=== PATIENT | male | born 1955 | race Caucasian/White ===

== ENCOUNTER 2017-06-18 09:56 | Day surgery (SDC) | payer BC ==
[~2017-06-18 09:56] MED LIST: RINGER'S SOLUTION,LACTATED 1,000 ML IV PRN
[2017-06-18] MEDS ORDERED: BUPIVACAINE HCL/EPINEPHRINE 50 ML VIAL IJ ONE ×2 (10:40)
[2017-06-18] MEDS ORDERED: RINGER'S SOLUTION,LACTATED 1,000 ML IV PRN (12:06)
[2017-06-18 12:54] VITALS: BP 131/79
--- NOTE | 2017-06-18 17:31 | OR ---
Operative Report - Dictated Report Narrative: OPERATIVE REPORT DATE OF OPERATION: 06/18/2017 PREOPERATIVE DIAGNOSIS: History of colon polyps. Family history of colon cancer. Pilar cyst of the scalp POSTOPERATIVE DIAGNOSIS: Severe sigmoid diverticulosis, redundant colon. 2 cm pilar cyst of the scalp (pathology pending) OPERATION: Colonoscopy to the proximal ascending colon. Excision pilar cyst of the scalp SURGEON: John Tobias MD ANESTHESIA: SELENA [place] CRNA INDICATIONS FOR PROCEDURE: The patient is a 61-year-old male referred by Dr. Jerry Steen. The patient's previous colonoscopy in 2006 was remarkable for a tubular adenoma and a hyperplastic polyp. The patient's grandmother had colon cancer at age 80. The patient moves his bowels once or twice a day FINDINGS: 2 cm pilar cyst of the scalp (pathology pending). Very capacious redundant colon with exam accomplished to the proximal ascending colon. Severe sigmoid diverticulosis. NARRATIVE OF PROCEDURE: The patient was identified in the holding area, the cyst cyst on the scalp was confidently identified, and prior to the administration of anesthetic, a multidisciplinary timeout was observed. The patient was initially placed supine and intravenous sedation administered. The scalp cyst was prepped with Betadine solution and isolated with sterile drapes. The area was infiltrated with 0.5% Marcaine with epinephrine. An incision was made over the cyst which was then bluntly dissected free from the surrounding tissues and delivered intact and submitted to pathology. Bleeding was controlled with electrocautery. All counts were correct. The wound was closed with jason and left open. The patient was then placed in the left lateral position and the perineum was inspected. There was no evidence of pilonidal disease or skin breakdown. The external appearance of the anus was normal. Sphincter tone was good. The flexible fiberoptic colonoscope was inserted into the rectum which was insufflated with air. The rectal mucosa and submucosal vascular pattern appeared normal, the prep was seen to be complete. The scope was advanced through the sigmoid colon, which contained numerous large noninflamed diverticular opening some of which were impacted with stool. The scope was advanced up the descending colon, and around the splenic flexure where the triangular haustral architecture of the transverse colon was seen. The scope was advanced across the transverse colon, around the hepatic flexure into the ascending colon. At this juncture the entire length of colonoscope had been inserted. Despite the use of standard reduction maneuvers the scope could not be advanced further proximally. The patient evidenced abdominal breathing which made assistance by manual compression impossible. The scope was withdrawn and readvanced on at least 4 occasions with similar result, in that the proximal several inches of true cecum was not visualized. The mucosa at this level appeared normal. The scope was accordingly then slowly withdrawn in a circular fashion so that all aspects of colonic mucosa were inspected. The colon was extremely redundant in course and capacious in nature. The haustral architecture however appeared well preserved throughout with no evidence of external compression. The mucosa and submucosal vascular pattern appeared normal, specifically there was no gross evidence to suggest colitis or inflammatory bowel disease and no AV malformations were seen. The diverticulosis was severe in degree and confined primarily to the sigmoid colon. No polyps were encountered. The scope was gradually withdrawn to the level of the rectum. As much insufflated air as possible was removed. The scope was withdrawn from the patient and the procedure terminated. The patient tolerated the anesthetic and procedure well without complication and was transferred back to the ambulatory surgery area awake and in stable condition. The patient remained stable throughout a period of postoperative observation. He denied abdominal discomfort, was able to tolerate by mouth intake, and was up without assistance. I shared the operative findings with the patient and he was given copies of the photographs which appear in the medical record. He was discharged home with instructions not to engage in hazardous activity today, but may resume normal activity tomorrow, and advance diet as tolerated. He is to continue those medications as listed in the history and physical exam. A pamphlet on diverticular disease was reviewed with him and his , and a trial of Benefiber or equivalent suggested. He is to keep his scalp wound dry, and return to the clinic in 7 days for staple removal. It was explained that because the true cecum was not visualized, he should undergo an elective double contrast barium enema as an outpatient. This will be scheduled when he returns for staple removal. Reviewed and electronically signed
== END 2017-06-18 09:57 | disposition home or self-care (01) ==
LOC: AMB 09:56
PROVIDERS: ATTEND Surgery
PROC: 0DJD8ZZ Inspection of Lower Intestinal Tract, Via Natural or Artificial Opening Endoscopic (ICD-10-PCS; principal; 2017-06-18 11:00)
PROC: 0HB0XZZ Excision of Scalp Skin, External Approach (ICD-10-PCS; 2017-06-18 11:00)
DX: Z12.11 Encounter for screening for malignant neoplasm of colon (principal); K57.30 Diverticulosis of large intestine without perforation or abscess without bleeding; L72.11 Pilar cyst; I10 Essential (primary) hypertension; E78.5 Hyperlipidemia, unspecified; I25.10 Atherosclerotic heart disease of native coronary artery without angina pectoris; M17.0 Bilateral primary osteoarthritis of knee; Z87.891 Personal history of nicotine dependence; Z68.39 Body mass index [BMI] 39.0-39.9, adult; Z86.010 Personal history of colon polyps; Z80.0 Family history of malignant neoplasm of digestive organs
CPT/HCPCS: 11422; G0105

== ENCOUNTER 2018-09-08 06:24 | Inpatient (IN) ==
--- NOTE | 2018-08-12 07:38 | ANES ---
Anesthesia Pre Procedure Eval HOME MEDICATIONS Aspirin [Aspirin Enteric Coated] 325 mg PO DAILY 06/05/17 [Last Taken Unknown] Calcium Carbonate/Vitamin D3 [Calcium 600 + Vit D 200 Tablet] 1 ea PO DAILY 06/05/17 [Last Taken Unknown] Colchicine [Colcrys] 0.6 mg PO BID PRN 06/05/17 [Last Taken Unknown] Lisinopril [Prinivil] 10 mg PO DAILY 06/05/17 [Last Taken Unknown] Magnesium 250 mg PO DAILY 06/05/17 [Last Taken Unknown] Polyethylene Glycol 3350 [Miralax] 17 gm PO DAILY 06/05/17 [Last Taken Unknown] Psyllium Husk (with Sugar) [Metamucil Powder] 2 tbs PO DAILY 06/05/17 [Last Taken Unknown] metoprolol succinate ER 25 mg tablet,extended release 24 hr 25 mg PO DAILY #30 tab 03/17/18 [Last Taken Unknown] rosuvastatin 40 mg tablet 40 mg PO DAILY #30 tab 04/10/18 [Last Taken Unknown] allopurinol 300 mg tablet 300 mg PO DAILY #90 tab 04/13/18 [Last Taken Unknown] naproxen sodium 220 mg tablet 440 mg PO DAILY PRN 05/15/18 [Last Taken Unknown] tadalafil 20 mg tablet 20 mg PO DAILY PRN #30 tab 05/19/18 [Last Taken Unknown] furosemide 20 mg tablet 20 mg PO DAILY #90 tab 07/16/18 [Last Taken Unknown] Allergies/Adverse Reactions: Allergies Allergy/AdvReac Type Severity Reaction Status Date / Time No Known Allergies Allergy Verified 06/29/18 08:39 - Planned Procedure Planned Procedure: Left Total Knee Arthroplasty Medication List Reviewed:: Yes Allergies Verified: Yes Medical History (Last Reviewed 08/12/18 @ 07:35 by Paul Michael CRNA) Allergic rhinitis Onset Date: ~11/07/11 CAD (coronary artery disease) Onset Date: ~11/07/11 Caries Onset Date: ~11/27/15 Cerumen debris on tympanic membrane of right ear Onset Date: ~10/24/15 Chest pain Onset Date: Unknown Constipation Onset Date: ~06/22/15 Diverticulosis of colon Onset Date: Unknown Epidermoid cyst Onset Date: ~05/13/17 on scalp Gout Onset Date: ~10/30/16 Hyperlipidemia Onset Date: ~06/22/15 Hypertension Onset Date: ~11/07/11 Hypogonadism Onset Date: ~11/07/11 Knee pain Onset Date: ~2005 left Leg cramp Onset Date: ~06/22/15 Osteoarthrosis of knee Onset Date: ~05/13/17 Shoulder pain, right Onset Date: ~04/2018 UTI (urinary tract infection) Onset Date: ~11/27/15 Chana Onset Date: ~06/22/15 Surgical History (Last Reviewed 08/12/18 @ 07:35 by Paul Michael CRNA) Colonoscopy planned Onset Date: ~201603/17/2007 Tinguely- tubular adenoma, hyperplastic polyp. 06/18/2017 Bagan- incomplete to proximal ascending colon. Redundant colon, severe sigmoid diverticulosis. f/u w/ barium enema. H/O coronary angiogram Onset Date: ~2013 2009, 06/2014 [place] H/O excision of epidermal inclusion cyst Onset Date: ~06/18/17 Bagan- scalp H/O nasal septoplasty Onset Date: ~01/17/11 [place] Tonsillectomy planned Onset Date: ~1963 age 10 or 11 Family History (Last Reviewed 08/12/18 @ 07:35 by Paul Michael CRNA) Brother Alive and well Grandfather Cancer Hypertension Hypothyroidism Grandmother Cancer Hypertension Hypothyroidism Grandmother Cancer Colon Heart disease Hypertension Grandfather Heart disease Hypertension Father , age 79 Heart disease Hypertension Myocardial infarction IBS (irritable bowel syndrome) Mother , age 78-sepsis Hypertension Hypothyroidism Cancer Breast Dementia Sister Alive and well - Family Anesthesia History Family History:: no untoward family reactions to anesthesia, no familial bleeding tendencies, no family history of clotting disorders, no family history of premature - Airway/Neck/Teeth Within Normal Limits:: Yes Teeth Condition: Intact Neck Exam: non-tender, full range of motion Mallampatti Score: 3 Thyromental (T-M) distance: > 6 cm Mandibulo Hyoid distance: > 3 cm - Respiratory Respiratory: chest non-tender, lungs clear Smoking Status: Never smoker Sleep Apnea currently treated: No Sleep Apnea by current assessment: Yes - some symptoms Discussed Risks/Treatment of EMILE: Yes - Cardiovascular Patient History - Cardiac/Respiratory: Coronary Heart Disease, Myocardial Infarction - by patient history, no documetation seen, await EKG and H&P. History highly suggestive. Tolerates Activity: Fair Heart Sounds: S1 & S2, Regular - Anesthesia Assessment and Plan ASA Class: PS, III Anesthesia Type Plan: Block - Adductor canal for post op pain relief, Spinal Planned difficult intubation/equipment available: No - standby
[~2018-09-08 06:24] MED LIST changes: -RINGER'S SOLUTION,LACTATED 1,000 ML IV PRN; +ROPIVACAINE HCL/PF 100 MG, EPINEPHrine 0.2 MG in NORMAL SALINE 100 ML IJ PRN; +TRANEXAMIC ACID 1,000 MG in NORMAL SALINE 100 ML IV PRN; +ceFAZolin SODIUM 1 GM VIAL IV PRN
[2018-09-08] MEDS: RINGER'S SOLUTION,LACTATED 1,000 ML IV PRN ×2 (07:25→09:25)
[2018-09-08] MEDS ORDERED: MAGNESIUM HYDROXIDE 30 ML UDC PO PRN (10:23)
[2018-09-08] MEDS ORDERED: ONDANSETRON HCL/PF 2 MG/ML VIAL IV PRN (10:23)
[2018-09-08] MEDS ORDERED: diphenhydrAMINE HCL 50 MG/ML VIAL IV PRN (10:23)
[2018-09-08] MEDS ORDERED: MAG HYDROX/ALUMINUM HYD/SIMETH 30 ML UDC PO PRN (10:23)
[2018-09-08] MEDS ORDERED: ACETAMINOPHEN 500 MG TABLET PO PRN (10:23)
--- NOTE | 2018-09-08 10:38 | OR ---
Operative Report - Dictated Report Narrative: Date: 09/08/2018 Preoperative diagnosis: Left knee degenerative joint disease. Postoperative diagnosis: Left knee degenerative joint disease. Procedure: Left total knee arthroplasty. Surgeon: Norbert Diamond M.D. Senior Contract Specialist: Darius Guerra PA-C Anesthesia: Spinal with regional block and local periarticular joint injection. Complications: None Specimens: Bone for disposal. Estimated blood loss: Minimal. Tourniquet time: 68 Minutes at 300 millimeters of mercury. Retained implants: Depuy Attune size 8 standard lugged cemented posterior stabilized femoral component. Size 8 fixed-bearing cemented tibial platform. 8 by 6 millimeter posterior stabilized cross-linked tibial insert. 41 millimeter medialized patella button. Indications: Jl is a 62-year-old male active community ambulator. This patient was followed in my clinic for period of time with significant complaints of left knee pain consistent with arthritic changes. They had failed conservative measures including but not limited to activity modification, passage of time, medications, and other conservative measures. Patient wished to proceed with surgical treatment. The risks, benefits, and alternatives were discussed in clinic. The risks of , blood clots, bleeding, infection, nerve/tendon blood vessel/ injury, malposition of components, intraoperative fracture, postoperative limited range of motion, persistent pain, failure of components, and need for additional procedures. Patient wished to proceed consent was obtained after answering all questions. Procedure: After marking the correct extremity on the floor, the patient was taken to the operating room. A timeout was performed. IV antibiotics consisting of 2 g of Ancef were administered prior to the procedure. A regional followed by spinal anesthetic was induced by anesthesia. on the operative table with all bony prominences well-padded. Muñoz catheter was placed and a bump was placed under the operative side buttock. SCDs and MONTSERRAT hose were utilized on the nonoperative leg. A well-padded tourniquet was applied to the operative thigh. The operative leg was then pre-scrubbed with alcohol prepped and draped in a standard sterile fashion. After exsanguinating the extremity with an Esmarch bandage, the tourniquet was inflated. After marking out the anterior knee for standard incision centered over the patella, the skin was incised and dissected down to the joint retinaculum. The joint retinaculum was marked out as well as the horizontal axis of the patella, and a standard medial parapatellar arthrotomy was then made. The most proximal aspect of the quadriceps tendon and the patella tendon insertion were protected from release. A partial synovectomy was performed as well as a resection of the infrapatellar fat pad. The distal femoral fat pad proximal to the trochlea was also resected using cautery. The soft tissues were elevated off the medial aspect of the proximal tibia using a Benites elevator ensuring that we did not transect the medial collateral ligament. Upon initial evaluation range of motion was approximately 0 degrees to 125 degrees of flexion. There were signs of advanced arthrosis in the medial and patellofemoral joint spaces. There were large marginal osteophytes which were removed with a rongeur. The knee was hyperflexed and the patella was tucked laterally. Protecting the surrounding soft tissues with Homans, an entry drill was placed down the femoral canal using Whitesides line for guidance into the entry point. The intramedullary femoral alignment anais was utilized in order to cut the distal femur in 5 of valgus resecting 10 millimeters of bone. Next the distal femur was sized to a size 8 standard. An anterior referencing guide was utilized to place the distal femoral cutting block in 3 of external rotation. This was pinned into place. The rotation was confirmed both visually and based on anatomic landmarks. The 4 in 1 cutting jig of the appropriate size was utilized in order to make all bony cuts. Retractors were utilized in order to protect surrounding soft tissues. This cut did not result in any excessive notching. We then cut the box centered over the distal femur. This allowed for resection of the anterior and posterior cruciate ligaments. I then turned my attention to the preparation of the tibia. Using an extra medullary tibial alignment anais, 3 millimeters of bone was resected off the medial articular surface. This was made perpendicular to the mechanical axis of the joint with the alignment anais centered over the ankle mortise. The alignment anais was parallel to the mechanical axis, centered over the medial one third of the tibial tubercle, paralleling the anterior surface of the tibia. We then turned our attention to the remaining meniscus and soft tissues. These were removed while protecting the surrounding ligaments and soft tissues. The marginal osteophytes off the anterior, posterior, medial, lateral aspects of the femur and tibia were removed. The tibia was sized out to a size 8. Next the tibia was drilled and punched in an externally rotated position as confirmed with a drop anais. Next the trial femur and a series of tibial inserts were utilized in order to allow for full extension and maximal flexion. It was found that a 6 millimeter insert gave the best range of motion and stability at multiple flexion points as well as at full extension there was less than 2 mm of gapping both medially and laterally. There is minimal anterior translation with the knee at 90 of flexion and no signs of being able to dislocate the knee. The patella was then prepared. The initial thickness was 26 millimeters. This was reamed down to 16 millimeters parallel to the anterior surface of the patella. It was sized out to a size 41 mm medialized patella button. This was then drilled and trialed. Without any medial restraint the patella tracked appropriately and did not sublux or dislocate. At this point, it was felt these were the appropriate sized implants and all trials were removed. The standard periarticular joint injection consisting of ropivacaine, Toradol, and epinephrine were injected into the periarticular joint tissues. The bony surfaces were thoroughly irrigated with a pulsatile-suction saline irrigation device. A bone plug from the prior resected anterior chamfer cut was placed into the drill hole at the distal femur. The bony surfaces were then dried in preparation for placement of the implants. The cement was vacuum mixed per the power ballast machine operator's instructions. The cement was placed on the dry bony surfaces and posterior aspect of the implants. The implants were impacted into place, removing all extruded cement. At this point anesthesia administered tranexamic acid per protocol intravenously. The knee was placed in extension with axial loading with the trial insert while the cement cured. A dilute 0.35% betadyne-saline solution was used to irrigate the knee and allowed to sit in the knee while the cement cured. Once the cement cured, all remaining extruded cement was removed. The knee was placed through a range of motion with the trial insert to ensure appropriate range of motion and stability. Final range of motion was approximately 0 to 125 degrees. The knee was again thoroughly irrigated with pulsatile saline lavage. The final polyethylene insert was then impacted into place ensuring no retained soft tissues. The remaining pe riarticular joint injection was injected. The knee was then packed with lap sponges which were soaked with dilute betadyne solution and the tourniquet was let down. Pressure was held for approximately 2 minutes and then hemostasis was obtained using electrocautery to coagulate any bleeding vessels. The knee was then placed over a triangle and the arthrotomy was closed with interrupted #1 Vicryl after thoroughly irrigating the joint. The deep and subcutaneous tissues were closed with interrupted oh and 3-0 Vicryl respectively. Skin was closed with a running subcutaneous 3-0 Monocryl and jason. Xeroform, 4 x 4's, ABD, Sof-Rol, and a full leg Ke wrap were applied. All sponge, needle, blade, and instrument counts were correct prior to closing the wounds. Postoperative condition: The patient was awoken and transferred to the postanesthesia care unit in stable condition. Plan is to be admitted to the inpatient medical/surgical floor postoperatively for 24 hours of IV antibiotics, physical therapy, occupational therapy, and medical co-management. Patient will be weightbearing as tolerated with range of motion as tolerated. DVT prophylaxis will be with SCDs, MONTSERRAT hose, and pharmacological anticoagulation. Anticipated hospital stay is approximately 2-4 days.
--- NOTE | 2018-09-08 11:00 | ANES ---
Anesthesia Procedure Note Procedure Note: ANESTHESIA PROCEDURE NOTE Date of Procedure: 09/08/2018 Time of procedure: 8:05 AM. Performed by: Paul Michael CRNA, MSN [employer] Dipper: Katty Rai RN. Preprocedure diagnosis: Post left total knee arthroplasty pain relief. Post procedure diagnosis: Same. Procedure: Left Adductor Canal Block. Indications: Post left total knee arthroplasty pain relief. Findings: See below. Details of the procedure: The patient was brought to OR for and placed in supine position. The patient's left femoral area to the knee was prepped with chlorhexidine and using ultrasound guidance the last femoral artery wasidentified at approximately the proximal one third femur. Under ultrasound guidance the saphenous nerve was approached with visualization of a 4 inch shielded block needle approaching the adductor canal just under the sartorius muscle. Once saphenous nerve was identified with proximity to the needle tip, the saphenous nerve was surrounded with 25 mL bupivacaine 0.25% with 1-200,000 epinephrine. Please see radiology/ultrasound report for details and retained images of the procedure. EBL: 0 Fluids: N/A. Specimen: N/A. Post procedure condition: The patient tolerated the procedure well. No complications were noted. Thank you for this consultation. Paul Michael CRNA, MSN
--- NOTE | 2018-09-08 11:00 | ANES ---
Post Anesthesia Discharge - Transfer of Care Transfer of Care handoff given to nurse: Yes - Discharge from PACU Discharge from PACU when meets criteria: Yes - Comfortable in PACU.
--- NOTE | 2018-09-08 12:16 | ANES ---
Post Anesthesia Assessment - Vital Signs Vitals: Last Vital Signs Temp 36.8 C 09/08/18 11:15 Pulse 78 09/08/18 11:15 Resp 18 09/08/18 11:15 BP 105/68 09/08/18 11:15 Pulse Ox 96 09/08/18 11:15 Airway Patency: Normal - Mental Status Level Of Consciousness: Awake, Alert - Pain Level Pain Score: 0 - N/V Assessment Nausea/Vomiting Presence: None Dehydration:: No
[2018-09-08] MEDS: NORMAL SALINE 1,000 ML IV PRN ×2 (14:02→21:48)
[2018-09-08] MEDS: ceFAZolin SODIUM 2 GM in DEXTROSE 5 % IN WATER 50 ML IV SCH ×4 (14:04→22:27)
[2018-09-08] MEDS: oxyCODONE HCL/ACETAMINOPHEN 1 TAB TABLET PO PRN ×2 (14:34→21:12)
[2018-09-08] MEDS: MORPHINE SULFATE 2 MG/ML DISP.SYRIN IV PRN ×4 (18:48→22:55)
[2018-09-08] MEDS: SENNOSIDES/DOCUSATE SODIUM 1 TAB TABLET PO SCH (22:26)
[2018-09-09] MEDS: MORPHINE SULFATE 2 MG/ML DISP.SYRIN IV PRN (00:02)
[2018-09-09] MEDS: oxyCODONE HCL/ACETAMINOPHEN 1 TAB TABLET PO PRN ×7 (01:18→22:03)
[2018-09-09 05:25] LABS: Hematocrit 41.2 % (42.0-52.0); Hemoglobin 13.8 gm/dL (13.5-18.0); Mean Cell Volume 87.3 fl (78-100); Mean Corpuscular Hemoglobin 29.2 pg (27-31); Mean Corpuscular Hgb Conc 33.5 g/dl (32-36); Mean Platelet Volume 9.3 fl (8-11.3); Platelet Count 169 K/mm3 (150-450); Red Blood Count 4.72 M/mm3 (4.7-6.0); Red Cell Distribution Width 13.4 % (11.5-14.0); White Blood Count 8.3 K/mm3 (4.0-10.5)
[2018-09-09] MEDS: ceFAZolin SODIUM 2 GM in DEXTROSE 5 % IN WATER 50 ML IV SCH ×2 (05:25)
[2018-09-09 05:35] LABS: Anion Gap 11.8 mmol/L (6.8-13.8); BUN/Creatinine Ratio 11.5 (9.0-21.6); Calcium * 8.5 mg/dL (7.9-10.9); Carbon Dioxide 24.5 mmol/L (24-32.6); Estimated Creat Clear 90.9; Potassium 4.3 mmol/L (3.4-4.6)
[2018-09-09] MEDS ORDERED: TRANEXAMIC ACID 1,000 MG in NORMAL SALINE 100 ML IV PRN (06:00)
[2018-09-09] MEDS ORDERED: RINGER'S SOLUTION,LACTATED 1,000 ML IV PRN (06:00)
[2018-09-09] MEDS: ENOXAPARIN SODIUM 40 MG/0.4 ML SYRG SC SCH (09:40)
[2018-09-09] MEDS: POLYETHYLENE GLYCOL 3350 119 GM BTL PO SCH (12:10)
[2018-09-09] MEDS: PSYLLIUM SEED 1 PACKET PACKET PO SCH (12:13)
--- NOTE | 2018-09-09 13:08 | PN ---
Subjective - Date and Time Seen Date: 09/09/18 Time: 08:15 Subjective Narrative: Patient reports no acute events, he does note significant pain, was given IV pain medication throughout the night intermittently. He notes his pain is currently a 7/10. He has been up and bear weight without complication. Objective - Vitals Vitals: Last Vital Signs Temp 36.6 C 09/09/18 11:00 Pulse 92 09/09/18 11:00 Resp 12 09/09/18 11:00 BP 127/91 H 09/09/18 11:00 Pulse Ox 93 09/09/18 11:00 - Abnormal Lab Findings Abnormal Lab Findings: Abnormal Lab Results 09/09/18 09/09/18 Range/Units 05:25 05:25 Hct 41.2 L (42.0-52.0) % Random Glucose 135 H (70-110) mg/dL - Exam Constitutional: Present: Alert, Cooperative, No distress Respiratory: Present: no respiratory distress Extremity: Present: other - LLE--> sensation intact light touch, distal capillary refill brisk, 5/5 plantar flexion/dorsiflexion, postoperative bandages remain in place clean, dry, intact Eye contact: Present: cooperative Thoughts: Present: normal thought pattern Cauti Physician Documentation - Urinary Catheter Management 2-way Urethral Date of Insertion: 09/08/18 Time of Insertion: 08:35 Date of Removal: 09/09/18 Time of Removal: 06:48 Assessment/Plan Plan Narrative: - 62 y/o male postop day 1 status post a left total knee arthroplasty -Weightbearing as tolerated, assistance as needed -PT/OT progress as tolerated -P.o. diet, low sodium restriction due to cardiac history, as tolerated -P.o. pain medication as needed -DVT prophylaxis Lovenox, SCDs in bed, MONTSERRAT hose -Maintain surgical dressing in place - Problems/Diagnosis (1) Status post total knee replacement, left Problem: Acute
[2018-09-09] MEDS: SENNOSIDES/DOCUSATE SODIUM 1 TAB TABLET PO SCH (20:58)
[2018-09-10] MEDS: oxyCODONE HCL/ACETAMINOPHEN 1 TAB TABLET PO PRN ×5 (02:03→16:41)
[2018-09-10 06:09] LABS: Anion Gap 11.7 mmol/L (6.8-13.8); BUN/Creatinine Ratio 11.4 (9.0-21.6); Carbon Dioxide 27.6 mmol/L (24-32.6); Estimated Creat Clear 99.1; Potassium 4.3 mmol/L (3.4-4.6)
[2018-09-10 06:20] LABS: Hematocrit 40.1 % (42.0-52.0); Hemoglobin 13.3 gm/dL (13.5-18.0); Mean Cell Volume 87.9 fl (78-100); Mean Corpuscular Hemoglobin 29.2 pg (27-31); Mean Corpuscular Hgb Conc 33.2 g/dl (32-36); Mean Platelet Volume 10.3 fl (8-11.3); Platelet Count 174 K/mm3 (150-450); Red Blood Count 4.56 M/mm3 (4.7-6.0); Red Cell Distribution Width 13.2 % (11.5-14.0); White Blood Count 9.6 K/mm3 (4.0-10.5)
[2018-09-10] MEDS: ENOXAPARIN SODIUM 40 MG/0.4 ML SYRG SC SCH (09:00)
[2018-09-10] MEDS: POLYETHYLENE GLYCOL 3350 119 GM BTL PO SCH (09:00)
[2018-09-10] MEDS: PSYLLIUM SEED 1 PACKET PACKET PO SCH (09:00)
[2018-09-10] MEDS ORDERED: LISINOPRIL 10 MG TABLET PO SCH (10:30)
[2018-09-10] MEDS ORDERED: FUROSEMIDE 20 MG TABLET PO SCH (10:30)
[2018-09-10] MEDS ORDERED: ALLOPURINOL 300 MG TABLET PO SCH (10:30)
[2018-09-10] MEDS ORDERED: METOPROLOL SUCCINATE 25 MG TABLET.SA PO SCH (10:30)
--- NOTE | 2018-09-10 15:58 | DS ---
(1) Status post total knee replacement, left Problem: Acute Description of Stay: Patient's 62-year-old male postop day 2 status post a left total knee arthroplasty. Patient was admitted status post left TKA. He was admitted for observation, pain control, returned a by mouth diet, monitoring. Since time of surgery patient's pain has been well-controlled with by mouth pain medication, he has tolerated by mouth diet, he has passed all physical therapy goals. Based on the criteria patient is ready for discharge home. Patient has had no acute complications. Patient's dressings were removed today with no significant erythema or drainage. Patient will follow up at 2 weeks postop, he will begin outpatient physical therapy on 09/11/2018. Patient will call with any questions or concerns, all acute questions have been answered in the hospital. -Weightbearing as tolerated with assistance as needed -By mouth pain medication when necessary -By mouth diet as tolerated -Begin outpatient physical therapy on 09/11/2018 -DVT prophylaxis Lovenox until 10 days postop followed by 325 aspirin daily for 6 weeks -Follow-up postoperatively for 2 weeks in orthopedic outpatient clinic Procedures Performed: see notes below List Procedures: s/p left total knee arthroplasty Results and Findings: Lab Pending Results 09/09/18 05:25: WBC 8.3, RBC 4.72, Hgb 13.8, Hct 41.2 L, MCV 87.3, MCH 29.2, MCHC 33.5, RDW 13.4, Plt Count 169, MPV 9.3 09/09/18 05:25: Sodium 133, Plasma Sodium 134, Potassium 4.3, Chloride 101, Carbon Dioxide 24.5, Anion Gap 11.8, BUN 11, Creatinine 0.96, Est GFR (Non-Af A kenan) 85, BUN/Creatinine Ratio 11.5, Random Glucose 135 H, Calcium 8.5 09/10/18 05:58: WBC 9.6, RBC 4.56 L, Hgb 13.3 L, Hct 40.1 L, MCV 87.9, MCH 29.2, MCHC 33.2, RDW 13.2, Plt Count 174, MPV 10.3 09/10/18 05:58: Sodium 137, Plasma Sodium 138, Potassium 4.3, Chloride 102, Carbon Dioxide 27.6, Anion Gap 11.7, BUN 10, Creatinine 0.88, Est GFR (Non-Af Amer) 94, BUN/Creatinine Ratio 11.4, Random Glucose 133 H, Calcium 9.0 Discharge Location: Home Disposition: Home self-care Condition: Good Discharge Activity: Activity as tolerated, Weight bearing Discharge Diet: General/regular food Referrals: Delmer Conner MD [Primary Care Provider] - Problem Oriented Discharge Instructions to Patient/Family: Total Knee Replacement, Care After, [id number] Print Language (Australian or Welsh Available): Australian Additional Patient Instructions (free text): Physical Therapy outpatient appt. at [facility] rehab department on 09/11 at 8:00am Follow up Dr Diamond Orthopedic appointment on Friday09/23/18 at 9:30am. Prescriptions (Any new or edited meds): oxyCODONE HCL/ACETAMINOPHEN [Percocet 5 MG/325 MG] 1 - 2 tab PO Q4H PRN #90 tab PRN Reason: Severe Pain (Pain Scale 7-10) Complete Home Medications List: Complete Home Medication List: Aspirin [Aspirin Enteric Coated] 325 mg PO DAILY 06/05/17 Calcium Carbonate/Vitamin D3 [Calcium 600 + Vit D 200 Tablet] 1 ea PO DAILY 06/05/17 Colchicine [Colcrys] 0.6 mg PO BID PRN 06/05/17 Lisinopril [Prinivil] 10 mg PO DAILY 06/05/17 Magnesium 250 mg PO DAILY 06/05/17 Polyethylene Glycol 3350 [Miralax] 17 gm PO DAILY 06/05/17 Psyllium Husk (with Sugar) [Metamucil Powder] 2 tbs PO DAILY 06/05/17 metoprolol succinate ER 25 mg tablet,extended release 24 hr 25 mg PO DAILY #30 tab 03/17/18 rosuvastatin 40 mg tablet 40 mg PO DAILY #30 tab 04/10/18 allopurinol 300 mg tablet 300 mg PO DAILY #90 tab 04/13/18 naproxen sodium 220 mg tablet 440 mg PO DAILY PRN 05/15/18 tadalafil 20 mg tablet 20 mg PO DAILY PRN #30 tab 05/19/18 furosemide 20 mg tablet 20 mg PO DAILY #90 tab 07/16/18 fexofenadine 180 mg tablet 180 mg PO DAILY #30 tab 08/19/18 fluticasone furoate 27.5 mcg/actuation nasal spray,suspension 2 spray INTRANASAL DAILY #9.1 ml 08/19/18 Enoxaparin Sodium [Lovenox] 40 mg SQ Q24H 8 Days #8 syringe 09/10/18 oxyCODONE HCL/ACETAMINOPHEN [Percocet 5 MG/325 MG] 1 - 2 tab PO Q4H PRN #90 tab 09/10/18 Amb Orders for Discharge: PT Evaluation and Treatment* Location: None Selected
[2018-09-10 17:14] VITALS: BP 100/70
[2018-09-10] MEDS ORDERED: ROSUVASTATIN CALCIUM 20 MG TABLET PO SCH (21:00)
== END 2018-09-10 17:10 | disposition home or self-care (01) | DRG 470 ==
LOC: MS 06:24 → EDSTATUS 08:00
PROVIDERS: ADMIT Orthopaedic Surgery; ATTEND Orthopaedic Surgery
DX: E78.5 Hyperlipidemia, unspecified; M25.762 Osteophyte, left knee; M25.562 Pain in left knee; Z68.38 Body mass index [BMI] 38.0-38.9, adult; M25.561 Pain in right knee; H40.9 Unspecified glaucoma; M17.12 Unilateral primary osteoarthritis, left knee; Z79.51 Long term (current) use of inhaled steroids; Z86.010 Personal history of colon polyps; Z79.82 Long term (current) use of aspirin; I25.10 Atherosclerotic heart disease of native coronary artery without angina pectoris; G89.29 Other chronic pain; I10 Essential (primary) hypertension; Z82.49 Family history of ischemic heart disease and other diseases of the circulatory system; M1A.00X0 Idiopathic chronic gout, unspecified site, without tophus (tophi); E66.9 Obesity, unspecified
CPT/HCPCS: 36415; 73560; 80048; 85027; 97110; 97116; 97161; 97165; 97530; 97535